=== PATIENT | male | born 1945 | race Caucasian/White ===

== ENCOUNTER → 2017-03-10 | Outpatient (CLI) | payer MEDICARE, SELFPAY | PROVIDERS: Family Provider Internal Medicine; Visit Provider Internal Medicine | DX: C67.9 Malignant neoplasm of bladder, unspecified (principal); I88.9 Nonspecific lymphadenitis, unspecified; Z12.5 Encounter for screening for malignant neoplasm of prostate | CPT/HCPCS: 36415; G0103 ==

== ENCOUNTER → 2018-04-27 09:41 | Outpatient (POV) | payer MEDICARE, SELFPAY | PROVIDERS: Visit Provider Dermatology | DX: Z00.00 Encounter for general adult medical examination without abnormal findings (principal) ==

== ENCOUNTER 2019-08-27 20:13 | Emergency (ER) | payer MEDICARE, OTHER, SELFPAY ==
--- NOTE | 2019-08-27 20:18 | HMH.EDGENADL ---
ED Disposition Clinical Impression: Pyelonephritis Disposition: Home, Self-Care Condition on Discharge: Good Instructions: DI for Kidney Infection Additional Instructions: Levaquin as prescribed. Follow-up with Dr. Chan in the office next week. Additional instructions for URINARY TRACT INFECTION: Return immediately if you have an uncontrollable fever greater than 102 degrees, severe back or abdominal pain, inability to urinate, or repetitive vomiting. Prescriptions: levoFLOXacin [Levaquin 500mg tab] 500 mg PO DAILY #10 tab Prescription Printed Referrals: Tremayne Bautista MD [Primary Care Provider] - - Critical Care Critical Care Time: No Attestation: On , the high probability of a clinically significant, sudden or life threatening deterioration of the following system(s) required my full and direct attention, intervention and personal management. The time I documented below is in addition to time spent performing reported procedures but includes the following listed in this critical care notation. Medical Decision Making - Medical Records Medical records reviewed: Yes: I reviewed the patient's medical records. - Festus Inquiry Pt receiving controlled substance: No Vital Signs: 08/27/19 20:15 08/27/19 20:24 08/27/19 20:45 Temperature 100.9 F H Temperature Source Oral Oral Pulse Rate Pulse Rate [Right] 88 81 Respiratory Rate 18 16 Blood Pressure Blood Pressure [Right Arm] 175/87 H 164/88 H Blood Pressure Mean [Right Arm] 116 113 Blood Pressure Source [Right Arm] Automatic Cuff Automatic Cuff Blood Pressure Position [Right Arm] Supine Supine 02 Sat by Pulse Oximetry 97 95 Oxygen Delivery Method Room Air Room Air 08/27/19 21:00 08/27/19 21:30 08/27/19 22:00 Temperature 99.4 F Temperature Source Oral Pulse Rate Pulse Rate [Right] 78 77 Respiratory Rate 16 16 Blood Pressure Blood Pressure [Right Arm] 158/88 H 152/83 H Blood Pressure Mean [Right Arm] 111 106 Blood Pressure Source [Right Arm] Automatic Cuff Automatic Cuff Blood Pressure Position [Right Arm] Supine Supine 02 Sat by Pulse Oximetry 97 96 Oxygen Delivery Method Room Air Room Air 08/27/19 22:15 Temperature 99.4 F Temperature Source Oral Pulse Rate 73 Pulse Rate [Right] Respiratory Rate 16 Blood Pressure 138/84 Blood Pressure [Right Arm] Blood Pressure Mean [Right Arm] Blood Pressure Source [Right Arm] Blood Pressure Position [Right Arm] 02 Sat by Pulse Oximetry Oxygen Delivery Method Room Air - Lab Data Lab results reviewed: Yes: I reviewed the patient's lab results. Lab Results 08/27/19 20:30: Urine Color Yellow, Urine Appearance Sl cloudy, Urine pH 7.0, Ur Specific [place] 1.010, Urine Protein Negative, Urine Glucose (UA) Negative, Urine Ketones Negative, Urine Blood 1+, Urine Nitrate Negative, Urine Bilirubin Negative, Urine Urobilinogen 0.2, Ur Leukocyte Esterase 2+ A, Urine RBC 5-10, Urine WBC 20-50 08/27/19 20:30: WBC 11.7 H, RBC 5.11, Hgb 15.6, Hct 45.1, MCV 88.1, MCH 30.5, MCHC 34.6, RDW 13.4, Plt Count 176, MPV 7.3 L, Neut % (Auto) 88.1 H, Lymph % (Auto) 8.1 L, Irwin % (Auto) 3.3, Eos % (Auto) 0.3, Baso % (Auto) 0.2, Neut # (Auto) 10.3 H, Lymph # (Auto) 0.9, Irwin # (Auto) 0.4, Eos # (Auto) 0.0, Baso # (Auto) 0.0, Total Counted 100, Neutrophils % (Manual) 91 H, Band Neutrophils % 1.0, Lymphocytes % (Manual) 7 L, Monocytes % (Manual) 1 L, Platelet Estimate Normal, RBC Morphology Normal 08/27/19 20:30: Sodium 134 L, Potassium 3.8, Chloride 97 L, Carbon Dioxide 28, Anion Gap 12.8, BUN 19, Creatinine 0.90, Estimated Creat Clear 81, Estimated GFR 83, Est GFR ( Amer) 100, Glucose 129 H, Calcium 9.3, Total Bilirubin 1.9 H, AST 41, ALT 25, Alkaline Phosphatase 97, Total Protein 8.3 H, Albumin 4.8, Globulin 3.5 H, Albumin/Globulin Ratio 1.4 08/27/19 20:30: Lactate 0.8 08/27/19 20:30: SARS-CoV-2 IgG Ab (Rapid) Positive A, SARS-CoV-2 IgM Ab (Rapid) Negative Result diagrams: 06
[2019-08-27 20:24] VITALS: BP 175/87; PULSE 88; RESP 18; TEMP 38.3; O2SAT 97; BMI 27.6
--- NOTE | 2019-08-27 20:31 | PC.NURSE ---
spoke with Dr. Spear. he stated he will be in a little after 9pm. house supp. informed
[2019-08-27 20:40] LABS: Microscopic, Urine URINE MICROSCOPIC (MICROSCOPIC)
[2019-08-27 20:45] VITALS: BP 164/88; PULSE 81; RESP 16; O2SAT 95
[2019-08-27 20:47] LABS: Basophils % 0.2 % (0.1-2.0); Eosinophils % 0.3 % (0.1-12.0); Hematocrit 45.1 % (42.0-52.0); Hemoglobin 15.6 g/dL (14.1-18.0); Lymphocytes # 0.9 K/mm3 (0.7-4.5); Lymphocytes % 8.1 % (10-50); Mean Corpuscular HGB Conc 34.6 g/dL (31.8-35.4); Mean Corpuscular Hemoglobin 30.5 pg (27.0-31.2); Mean Corpuscular Volume 88.1 fl (80-94); Mean Platelet Volume 7.3 fl (7.4-10.4); Monocytes # 0.4 K/mm3 (0.1-1.0); Monocytes % 3.3 % (1.7-9.3); Neutrophils # 10.3 K/mm3 (1.8-7.8); Neutrophils % 88.1 % (37.0-80.0); Platelet Count 176 K/mm3 (142-424); Red Blood Count 5.11 M/mm3 (4.60-6.20); Red Cell Distribution Width 13.4 % (11.5-17.5); White Blood Count 11.7 K/mm3 (4.8-10.8)
[2019-08-27 20:50] LABS: MANUAL DIFFERENTIAL MANUAL DIFFERENTIAL (MANUAL DIFF)
[2019-08-27 20:52] LABS: Appearance,Urine SL CLOUDY (Clear); Bilirubin,Urine Negative (Negative); Blood, Urine 1+ (Negative); Color,Urine YELLOW (Yellow); Glucose,Urine (UA) Negative (Negative); Ketones,Urine Negative (Negative); Leukocyte Esterase,Urine 2+ (Negative); Nitrate,Urine Negative (Negative); Protein,Urine Negative (Negative); Urobilinogen,Urine 0.2 EU/dl (0.2)
[2019-08-27 20:53] LABS: Alanine Aminotransferase 25 U/L (12-78); Albumin Level 4.8 g/dl (3.5-5.0); Albumin/Globulin Ratio 1.4 (1.1-1.8); Alkaline Phosphatase 97 U/L (38-126); Anion Gap 12.8 mEq/L (5-15); Aspartate Amino Transferase 41 U/L (17-59); Bilirubin,Total 1.9 mg/dl (0.2-1.3); Blood Urea Nitrogen 19 mg/dl (9-20); Calcium 9.3 mg/dl (8.4-10.2); Carbon Dioxide 28 mmol/L (22.0-30.0); Chloride 97 mmol/L (98-107); Creatinine Clearance Estimated 81 mL/min (50-200); Estimated Glomerular Filt Rate 83 ml/min (>60); GFR (African American) 100 ML/MIN (>60); Globulin 3.5 g/dL (1.3-3.2); Glucose 129 mg/dl (74-100); Potassium 3.8 mmoL/L (3.5-5.1); Sodium 134 mmol/L (136-145); Total Protein,Serum 8.3 g/dl (6.3-8.2)
[2019-08-27 20:57] LABS: WBC,Urine 20-50 #/hpf (0-3)
[2019-08-27 20:59] LABS: Lactic Acid 0.8 mmol/L (0.7-2.1); Lymphocytes % 7 % (10-50); Monocytes % 1 % (2-9); Neutrophils % 91 % (42-76); Platelet Estimate Normal; RBC Morphology Normal; Total Cells Counted 100
[2019-08-27 21:00] VITALS: BP 158/88; PULSE 78; RESP 16; O2SAT 97
--- NOTE | 2019-08-27 21:04 | PC.NURSE ---
Dr. Spear at bedside
[2019-08-27 21:06] LABS: Coronavirus 19 IgG Antibody Positive (Negative); Coronavirus 19 IgM Antibody Negative (Negative)
--- NOTE | 2019-08-27 21:22 | PC.NURSE ---
Dr Mares speaking with Dr Berger
[2019-08-27 21:30] VITALS: BP 152/83; PULSE 77; RESP 16; O2SAT 96
--- NOTE | 2019-08-27 21:45 | PC.NURSE ---
Dr Mares speaking with Dr Chan
[2019-08-27 22:00] VITALS: TEMP 37.4
[2019-08-27 22:15] VITALS: BP 138/84; PULSE 73; RESP 16; TEMP 37.4; O2SAT 97
[2019-08-29 09:59] LABS: Covid-19 Nasal PCR Sendout UK NOT DETECTED
== END 2019-08-27 22:17 | disposition home or self-care (01) ==
PROVIDERS: Emergency Provider Emergency Medicine; PCP Family Medicine
DX: N12 Tubulo-interstitial nephritis, not specified as acute or chronic (principal); E78.5 Hyperlipidemia, unspecified; Z87.442 Personal history of urinary calculi; Z87.891 Personal history of nicotine dependence; Z90.49 Acquired absence of other specified parts of digestive tract
CPT/HCPCS: 80053; 81001; 83605; 85007; 85025; 86328; 87040; 87086; 96365; 96367; 96375; 99284; J1956; J2405; U0003

== ENCOUNTER → 2019-10-04 08:44 | Outpatient (POV) | payer MEDICARE, OTHER, SELFPAY | PROVIDERS: PCP Family Medicine; Visit Provider Dermatology | DX: Z00.00 Encounter for general adult medical examination without abnormal findings (principal) ==

== ENCOUNTER → 2020-06-07 11:53 | Outpatient (CLI) | payer MEDICARE, OTHER, SELFPAY ==
--- NOTE | 2020-06-07 | ECG_ITS ---
APPROVED REPORT Exam: Resting ECG HR:72 bpm ECG Measurements Heart Rate 72 AXES RI 152 P 62 QRSd 92 QRS 63 QT 408 T 34 QTc 446 Conclusion Undetermined rhythm Otherwise normal ECG Electronically signed by : Anastacio Salinas, 06/07/2020 17:38:37
--- NOTE | 2020-06-07 12:02 | XR_ITS ---
PROCEDURE: XR CHEST 2V CLINICAL HISTORY: VILLANUEVA,SOB COMPARISON: No exams were available for comparison FINDINGS: The cardiomediastinal silhouette and pulmonary vascularity are within normal limits. Nodular opacities overlie the 6th rib on both sides anteriorly consistent with nipple shadows. The lungs are otherwise clear. No acute bony abnormalities. IMPRESSION: No acute findings. Dictated by: Khoa Herrera MD 06/07/2020 14:28 Khoa Herrera MD in [facility] 06/07/2020 14:28
[2020-06-07 14:41] LABS: Alanine Aminotransferase 21 U/L (12-78); Albumin Level 4.3 g/dl (3.5-5.0); Albumin/Globulin Ratio 1.6 (1.1-1.8); Alkaline Phosphatase 92 U/L (38-126); Anion Gap 11.7 mEq/L (5-15); Aspartate Amino Transferase 38 U/L (17-59); Bilirubin,Total 0.9 mg/dl (0.2-1.3); Blood Urea Nitrogen 16 mg/dl (9-20); Calcium 9.5 mg/dl (8.4-10.2); Carbon Dioxide 26 mmol/L (22.0-30.0); Chloride 104 mmol/L (98-107); Estimated Glomerular Filt Rate 82 ml/min (>60); GFR (African American) 100 ML/MIN (>60); Globulin 2.7 g/dL (1.3-3.2); Glucose 92 mg/dl (74-100); Potassium 4.7 mmoL/L (3.5-5.1); Sodium 137 mmol/L (136-145)
[2020-06-07 14:48] LABS: NT Pro Brain Natriuretic Pep. 171 pg/mL (0-125)
[2020-06-07 15:08] LABS: Thyroid Stimulating Hormone 0.98 uIU/mL (0.465-4.68)
== END ==
PROVIDERS: PCP Family Medicine; Visit Provider Family Medicine
DX: R07.9 Chest pain, unspecified (principal); R06.02 Shortness of breath; R06.00 Dyspnea, unspecified
CPT/HCPCS: 71046; 80053; 83880; 84443; 93005

== ENCOUNTER → 2021-04-10 11:01 | Outpatient (CLI) | payer MEDICARE, OTHER, SELFPAY | PROVIDERS: PCP Family Medicine; Visit Provider Urology | DX: C67.9 Malignant neoplasm of bladder, unspecified (principal); R31.9 Hematuria, unspecified; Z01.812 Encounter for preprocedural laboratory examination; U07.1 COVID-19 | CPT/HCPCS: C9803; U0003; U0005 ==

== ENCOUNTER 2021-05-10 10:59 | Day surgery (SDC) | payer MEDICARE, OTHER, SELFPAY ==
[2021-04-10 09:29] VITALS: BMI 26.5
[2021-05-07 11:43] VITALS: BMI 26.5
[2021-05-10 11:16] VITALS: BP 174/91; PULSE 66; RESP 18; TEMP 36.5; O2SAT 99
[2021-05-10 12:30] VITALS: BP 165/92; PULSE 63; RESP 18; O2SAT 98
--- NOTE | 2021-05-10 15:05 | HMH.OPNOTE ---
Date of procedure: 05/10/21 Pre-op Diagnosis:: Gross hematuria Post-op Diagnosis:: Gross hematuria, history of bladder cancer Procedure performed:: Cystoscopy Surgeon:: Garcia Chan MD Anesthesia: local Estimated blood loss (mL): 0 Clinical Note:: 75-year-old white male with history of bladder cancer with recent gross hematuria. Since I saw him in the office April 05 he has had no further hematuria but presents for cystoscopic evaluation. His last cystoscopy was August 2020 and was normal. Operative findings:: No evidence of mucosal abnormalities or other source of recent bleeding. His prostate did show by lobar hyperplasia. Operative note:: Patient taken to the operating suite after informed consent was obtained. On the stretcher is prepped draped in the standard surgical fashion and 2% lidocaine placed into the urethra and clamped. After 5 minutes the flexible cystoscope was placed into the urethral meatus and passed to the prostatic urethra which showed bilobar hyperplasia but no evidence of friability or bleeding. The bladder was entered and examined in a systematic fashion. No mucosal abnormalities, stones, diverticula or trabeculation noted. The ureteral orifices were obscured by the median lobe. The scope was retroflexed showing a large median lobe. The scope then removed. Patient tolerated procedure well. We discussed the findings today and he was reassured there is no obvious cause for his recent hematuria. He will continue the tamsulosin and finasteride. Condition: stable Disposition: same day Specimens:: None Complications:: None
== END 2021-05-10 12:30 | disposition home or self-care (01) ==
LOC: OUTP 11:01
PROVIDERS: PCP Family Medicine; Visit Provider Urology
DX: R31.9 Hematuria, unspecified (principal); Z85.51 Personal history of malignant neoplasm of bladder; E78.5 Hyperlipidemia, unspecified; Z88.1 Allergy status to other antibiotic agents; Z79.899 Other long term (current) drug therapy
CPT/HCPCS: 52000

== ENCOUNTER → 2021-07-09 10:10 | Outpatient (POV) | payer MEDICARE, OTHER, SELFPAY | PROVIDERS: Visit Provider Dermatology | DX: Z00.00 Encounter for general adult medical examination without abnormal findings (principal) ==

== ENCOUNTER → 2021-08-06 08:17 | Outpatient (POV) | payer MEDICARE, OTHER, SELFPAY | PROVIDERS: Visit Provider Dermatology | DX: Z00.00 Encounter for general adult medical examination without abnormal findings (principal) ==

== ENCOUNTER → 2022-06-24 08:45 | Outpatient (POV) | payer MEDICARE, OTHER, SELFPAY | PROVIDERS: Visit Provider Dermatology | DX: Z00.00 Encounter for general adult medical examination without abnormal findings (principal) ==

== ENCOUNTER → 2022-08-25 11:20 | Outpatient (CLI) | payer MEDICARE, OTHER, SELFPAY | PROVIDERS: PCP Family Medicine; Visit Provider Nurse Practitioner | DX: R00.2 Palpitations (principal) | CPT/HCPCS: 93270 ==

== ENCOUNTER → 2022-08-28 11:02 | Outpatient (CLI) | payer MEDICARE, OTHER, SELFPAY ==
--- NOTE | 2022-08-28 | CA_ITS ---
APPROVED REPORT Exam: Exercise Treadmill Technologist: Aleida Hernandez, Ht: 5 ft 10 in Wt: 189 lbs BSA: 2.04 m2 HR: 66 bpm BP: 161/96 mmHg Rhythm: NSR Indications: CP Medical History Medications: Amlodipine,,,,, Pravastatin,,,,, Vit D3,,,,, Finasteride,,,,, SaW [place],,,,, MVI,,,,, Stress Test Details Test: Jarrod HR Resting HR: 74 bpm Max Heart Rate (APMHR): 144 bpm Max HR Achieved: 141 bpm Target HR (85% APMHR): 122 bpm % of APMHR: 98 Recovery HR: 81 bpm HR response to stress: Normal HR response to stress BP Resting BP: 153.0/87 mmHg Max BP: 184/93 mmHg Recovery BP: 153.0/88.0 mmHg BP response to stress: Normal blood pressure response to stress. ECG Resting ECG: NSR, ST-T abns inferiorly Stress ECG: Exaggeration of baseline ST abnormality Arrhythmia: PACs, PVCs Recovery ECG: No change Recovery Arrhythmia: PVCs Clinical Exercise duration: 09:30 min Highest Stage Achieved: Exercise capacity: 10.1 METs Overall Exercise Capacity for Age: Good Stress ECG Conclusion The patient exercised 9:30 on Jarrod Protocol, achieving 10.1 METs. He had a normal HR and BP response to exercise. He demonstrated good exercise capacity compared to age and sex-matched peers. Max HR: 141 % of PM: 98% Max BP: 184/93 METs: 10.1 Test stopped due to: SOA, Fatigue Symptoms: No CP. Arrhythmias/Ectopy: Occastional PVCs were present during stress and in recovery. Brief period of frequent PACs during 1st minute of exercise. ST-T Changes: Exaggeration of baseline abns in the inferior leads. Conclusion: Non-diagnostic GXT due to baseline abns. Good exercise capacity. Myoview images reported separately. Test Summary REST . . . . . . . Sitting REST . . . . . . . Standing REST 04:01 0.0 0.0 74 . 153/ 87 . . Stage 1 01:00 10.0 1.7 83 . . . . Stage 1 02:00 10.0 1.7 87 . . . . Stage 1 03:00 10.0 1.7 87 . 158/ 70 . . Stage 2 01:00 12.0 2.5 98 . . . . Stage 2 02:00 12.0 2.5 103 . . . . Stage 2 03:00 12.0 2.5 106 . 170/ 70 . . Stage 3 01:00 14.0 3.4 122 . . . . Stage 3 02:00 14.0 3.4 126 . . . . Stage 3 03:00 14.0 3.4 127 . . . . Stage 4 00:30 16.0 4.2 138 . . . Stop exercise at 09:30 RECOVERY 01:00 0.0 0.0 125 . . . . RECOVERY 02:00 0.0 0.0 101 . . . . RECOVERY 03:00 0.0 0.0 92 . 184/ 93 . . RECOVERY 04:00 0.0 0.0 80 . 184/ 93 . . RECOVERY 05:00 0.0 0.0 82 . 153/ 88 . . RECOVERY 05:20 0.0 0.0 82 . 153/ 88 . . Electronically signed by : Alejandra Monet, 08/31/2022 14:15:05
--- NOTE | 2022-08-28 11:03 | NM_ITS ---
APPROVED REPORT Exam: Nuclear Stress Test Indication: chest pain..soa..palpitations..fatigue..high cholesterol..htpertension Patient Location: Outpatient Stress Tech: Aleida Buck [place] Tech:Paula Foote, ARRT RT(R)(N) Ht: 5 ft 10 in Wt: 180 lbs HR: 74 bpm BP: 153/87 mmHg BSA: 2.00 m2 TID: 1.15 BMI: 25.8 History: chest pain..soa..palpitations..fatigue..high cholesterol..htpertension Procedure: Patient exercised on Jarrod protocol 9:30 minutes and sec, resting heart rate 74 bpm, resting blood pressure 153/87 mmHg, with exercise maximum heart rate achived was 141 bpm which is 98 % of the maximum predicted heart rate and blood pressure was 184/93 mmHg. Patient denied any complaint of chest pain. Patient has exercise capacity, achieved 10.1 METs of workload on treadmill, the blood pressure response to exercise was . Cardiac Stress and Resting SPECT Images: Cardiac Stress and Resting SPECT images were obtained using technetium 99m Myoview 32.9 mCi stress and 10.98 mCi at rest. Resting and stress imaging in both supine and prone positions demonstrate a medium-sized, mild, fixed perfusion defect in the mid to distal inferior and inferoseptal LV wall. Gated imaging demonstrates mild reduction in global LV systolic function. There is moderate hypokinesis in the inferior and inferoseptal LV morley. LVEF is calculated at 48%. Conclusion: Resting and stress imaging in both supine and prone positions demonstrate a medium-sized, mild, fixed perfusion defect in the mid to distal inferior and inferoseptal LV wall. No evidence of reversible ischemia. Gated imaging demonstrates mild reduction in global LV systolic function. There is moderate hypokinesis in the inferior and inferoseptal LV morley. LVEF is calculated at 48%. Electronically signed by : Alejandra Monet, 08/31/2022 14:23:52
--- NOTE | 2022-08-28 12:47 | CA_ITS ---
FINAL REPORT TECHNIQUE: Color Doppler, duplex Doppler and torrez scale sonography of the bilateral neck arterial vasculature was performed. Velocities were measured in the carotid arteries. Stenosis evaluation based on the validated velocity criteria. CLINICAL HISTORY: BRUIT,HTN,HLD COMPARISON: None FINDINGS: The peak systolic velocity of the right common carotid artery is 64 cm/s. The peak systolic velocity of the right internal carotid artery is 82 cm/s and end diastolic velocity of 31 cm/s. The ICA/CCA ratio is 1.67. A mild amount of plaque is present. The right external carotid artery is patent. The right vertebral artery is patent with antegrade flow. The peak systolic velocity of the left common carotid artery is 88 cm/s. The peak systolic velocity of the left internal carotid artery is 72 cm/s and end diastolic velocity 28 cm/s. The ICA/CCA ratio is 1.6. A mild amount of plaque is present. The left external carotid artery is patent.The left vertebral artery is patent with antegrade flow. IMPRESSION: Less than 50% bilateral carotid stenoses. Bilateral patent vertebral arteries with antegrade flow. If indicated, CTA or MRA could further evaluate. Reviewed, Interpreted and Dictated by Bernardino Hodge III, MD Transcribed by Flores Del Toro Authenticated and [facility]
== END ==
PROVIDERS: PCP Family Medicine; Visit Provider Nurse Practitioner
DX: R07.9 Chest pain, unspecified (principal); R09.89 Other specified symptoms and signs involving the circulatory and respiratory systems
CPT/HCPCS: 78452; 93017; 93880; A9502

== ENCOUNTER → 2022-08-29 07:47 | Outpatient (CLI) | payer MEDICARE, OTHER, SELFPAY ==
--- NOTE | 2022-08-29 07:54 | CA_ITS ---
FINAL REPORT TECHNIQUE: Grayscale, color Doppler and duplex Doppler ultrasound of the kidneys, aorta and renal arteries was performed. Multiple velocities were measured. CLINICAL HISTORY: HTN,HX KIDNEY STONES COMPARISON: None FINDINGS: Aorta velocity: 69 cm/sec Right kidney: 10.7 cm. No evidence of hydronephrosis or mass. Right intrarenal RI: 0.60-0.71 Right renal artery velocity: 166 cm/sec. Right RAR (Renal artery-Aortic Ratio): 2.38 Left Kidney: 10.9 cm. No evidence of hydronephrosis or mass. Left intrarenal RI: 0.56-0.66 Left renal artery velocity: 129 cm/sec. Left RAR (Renal Artery-Aortic Ratio): 1.85 IMPRESSION: No evidence of significant renal artery stenosis. CT angiogram or postcontrast MR angiogram would be more sensitive for evaluation of possible renal artery stenosis. Reviewed, Interpreted and Dictated by Bernardino Hodge III, MD Transcribed by Flores Del Toro Authenticated and [facility]
--- NOTE | 2022-08-29 08:27 | US_ITS ---
FINAL REPORT CLINICAL HISTORY: I10 - Essential (primary) hypertension FINDINGS: The right kidney measures 10.2 cm in length. It is normal in echogenicity. There is no hydronephrosis. There is a 1.4 cm probable cyst in the upper pole of the right kidney. The left kidney measures 10.1 cm in length. It is normal in echogenicity. There is no hydronephrosis. The spleen is unremarkable. IMPRESSION: Probable right renal cyst. Reviewed, Interpreted and Dictated by Bernardino Hodge III, MD Transcribed by Krysten Hall Authenticated and [facility]
== END ==
PROVIDERS: PCP Family Medicine; Visit Provider Nurse Practitioner
DX: I10 Essential (primary) hypertension (principal)
CPT/HCPCS: 76770; 93976

== ENCOUNTER 2022-09-30 07:18 | Day surgery (SDC) | payer MEDICARE, OTHER, SELFPAY ==
[2022-09-30] VITALS (12 sets, daily range): BP systolic 107–165; BP diastolic 61–101; PULSE 46–55; RESP 16–18; O2SAT 94–100; BMI 27.1
--- NOTE | 2022-09-30 06:43 | IR_ITS ---
APPROVED REPORT Patient Location: Outpatient Sheetmetal Worker: MARY BETH Quiroz RT (R) PROCEDURES Left heart catheterization Left ventriculogram Selective coronary angiogram INDICATION Abnormal stress test, Persistent angina pectoris Informed consent was obtained prior to the procedure. COMPLICATIONS None Estimated Blood Loss: Less than 10 mls TECHNIQUE One percent lidocaine used to anesthetize the right anterior aspect of the wrist. The right radial artery was accessed via the Seldinger technique. A 6 Kiswahili sheath was placed in the right radial artery. 150 mg magnesium sulfate, 800 mcg of nitroglycerin, 1mg Lidocaine and 5000 U Heparin were given through the arterial sheath. The papa catheter was also used to perform left heart catheterization, left ventriculogram and selective coronary angiogram. At the end of the procedure the sheath was removed good hemostasis was achieved using Traclet band, patient was transferred to the postop holding area in stable condition. ANGIOGRAPHIC RESULTS The left main artery Normal The left anterior descending artery Normal The circumflex artery Normal The right coronary artery Dominant normal The [place] ventriculogram reveals Normal 65% The left ventricular end-diastolic pressure 10 mmHg IMPRESSION Normal coronary arteries Normal ejection fraction Normal left ventricular end-diastolic pressure PLAN 1. Evaluation of noncardiac symptoms Electronically signed by : Immanuel Castro MD 09/30/2022 09:02:21
[2022-09-30 08:22] LABS: Anion Gap 7.2 mEq/L (5-15); Blood Urea Nitrogen 16 mg/dl (9-20); Calcium 9.1 mg/dl (8.4-10.2); Carbon Dioxide 29 mmol/L (22.0-30.0); Chloride 107 mmol/L (98-107); Creatinine Clearance Estimated 75 mL/min (50-200); Estimated Glomerular Filt Rate 72 ml/min (>60); GFR (African American) 88 ML/MIN (>60); Glucose 90 mg/dl (74-100); Potassium 4.2 mmoL/L (3.5-5.1); Sodium 139 mmol/L (136-145)
[2022-09-30 08:29] LABS: Basophils % 0.4 % (0.1-2.0); Eosinophils # 0.2 K/mm3 (0.0-0.4); Hematocrit 42.6 % (42.0-52.0); Lymphocytes # 2.1 K/mm3 (0.7-4.5); Lymphocytes % 34.3 % (10-50); Mean Corpuscular HGB Conc 32.9 g/dL (31.8-35.4); Mean Corpuscular Hemoglobin 28.8 pg (27.0-31.2); Mean Corpuscular Volume 87.6 fl (80-94); Mean Platelet Volume 7.7 fl (7.4-10.4); Monocytes # 0.4 K/mm3 (0.1-1.0); Monocytes % 6.7 % (1.7-9.3); Neutrophils # 3.4 K/mm3 (1.8-7.8); Neutrophils % 55.6 % (37.0-80.0); Platelet Count 203 K/mm3 (142-424); Red Blood Count 4.86 M/mm3 (4.60-6.20); Red Cell Distribution Width 13.7 % (11.5-17.5); White Blood Count 6.1 K/mm3 (4.8-10.8)
[2022-09-30 08:30] LABS: Prothrombin Time 10.8 seconds (10.1-12.5)
--- NOTE | 2022-09-30 11:23 | SUR.PHASEII ---
1100 attempted to take 2ml of air out. pt began bleeding at radial site, replae 2ml of air back into radial band. bleeding stopped. 1115 removed 2ml of air from radial band, no new bleeding noted.
== END 2022-09-30 12:40 | disposition home or self-care (01) ==
PROVIDERS: PCP Family Medicine; Visit Provider Internal Medicine
DX: I10 Essential (primary) hypertension (principal); I25.118 Atherosclerotic heart disease of native coronary artery with other forms of angina pectoris; I42.9 Cardiomyopathy, unspecified; R00.2 Palpitations; R06.00 Dyspnea, unspecified; R09.89 Other specified symptoms and signs involving the circulatory and respiratory systems; R42 Dizziness and giddiness; R94.39 Abnormal result of other cardiovascular function study; Z79.899 Other long term (current) drug therapy; Z79.01 Long term (current) use of anticoagulants; I48.0 Paroxysmal atrial fibrillation
CPT/HCPCS: 80048; 85025; 85610; 93306; 93458; 99152; C1725; C1760; C1769; J1644; Q9967

== ENCOUNTER 2023-04-15 09:05 | Outpatient (CLI) | payer MEDICARE, OTHER, SELFPAY ==
[2023-04-15 09:29] LABS: Basophils # 0.1 K/mm3 (0-0.2); Basophils % 0.8 % (0.1-2.0); Eosinophils # 0.2 K/mm3 (0.0-0.4); Eosinophils % 1.8 % (0.1-12.0); Hematocrit 41.4 % (42.0-52.0); Hemoglobin 14.6 g/dL (14.1-18.0); Lymphocytes # 2.1 K/mm3 (0.7-4.5); Lymphocytes % 23.5 % (10-50); Mean Corpuscular HGB Conc 35.4 g/dL (31.8-35.4); Mean Corpuscular Volume 90.4 fl (80-94); Monocytes # 0.5 K/mm3 (0.1-1.0); Monocytes % 5.9 % (1.7-9.3); Platelet Count 224 K/mm3 (142-424); Red Blood Count 4.58 M/mm3 (4.60-6.20); Red Cell Distribution Width 13.6 % (11.5-17.5); White Blood Count 8.8 K/mm3 (4.8-10.8)
[2023-04-15 09:51] LABS: Chloride 101 mmol/L (98-107); Sodium 135 mmol/L (136-145)
[2023-04-15 09:52] LABS: Potassium 4.7 mmoL/L (3.5-5.1)
[2023-04-15 09:54] LABS: Alanine Aminotransferase 25 U/L (12-78); Alkaline Phosphatase 104 U/L (38-126); Anion Gap 11.7 mEq/L (5-15); Aspartate Amino Transferase 42 U/L (17-59); Blood Urea Nitrogen 15 mg/dl (9-20); Carbon Dioxide 27 mmol/L (22.0-30.0); Cholesterol 191 mg/dl (140-200); Estimated Glomerular Filt Rate 72 ml/min (>60); GFR (African American) 88 ML/MIN (>60); Glucose 96 mg/dl (74-100); Total Protein,Serum 6.7 g/dl (6.3-8.2); Triglycerides 137 mg/dl (30-150); VLDL Cholesterol 27 mg/dL (0-40)
[2023-04-15 09:55] LABS: Chol/HDL Ratio 3.4 (1-3.5); HDL Cholesterol 57 mg/dl (40-60)
[2023-04-15 10:06] LABS: Direct LDL Cholesterol 88.39 mg/dL (100-129)
[2023-04-15 10:28] LABS: Thyroid Stimulating Hormone 1.95 uIU/mL (0.465-4.68)
== END 2023-04-15 23:59 ==
LOC: LAB 09:06
PROVIDERS: PCP Family Medicine; Visit Provider Nurse Practitioner
DX: E78.5 Hyperlipidemia, unspecified (principal); I10 Essential (primary) hypertension; I48.0 Paroxysmal atrial fibrillation; I42.8 Other cardiomyopathies
CPT/HCPCS: 36415; 80048; 80061; 80076; 83735; 84439; 84443; 85025

== ENCOUNTER 2023-05-01 15:32 | Outpatient (CLI) | payer MEDICARE, OTHER, SELFPAY ==
--- NOTE | 2023-05-01 15:39 | XR_ITS ---
FINAL REPORT CLINICAL HISTORY: ACUTE LEFT ANKLE PAIN COMPARISON: None FINDINGS: LEFT ANKLE: Three views of the left ankle were obtained. There is no acute fracture or dislocation. The joint spaces and mortise are intact. Soft tissue swelling is present. A plantar calcaneal spur is present as well. IMPRESSION: No acute bony abnormality. Reviewed, Interpreted and Dictated by Bernardino Hodge III, MD Transcribed by Liz Caceres Authenticated and [facility]
[2023-05-01 17:13] LABS: Uric Acid 2.8 mg/dl (3.5-8.5)
== END 2023-05-01 23:59 ==
PROVIDERS: PCP Family Medicine; Visit Provider Family Medicine
DX: M25.572 Pain in left ankle and joints of left foot (principal); E79.0 Hyperuricemia without signs of inflammatory arthritis and tophaceous disease
CPT/HCPCS: 36415; 73610; 84550

== ENCOUNTER 2023-06-24 15:18 | Emergency (ER) | payer MEDICARE, OTHER, SELFPAY ==
[2023-06-24 15:27] VITALS: BP 158/87; PULSE 95; RESP 18; TEMP 36.9; O2SAT 94; BMI 27.2
--- NOTE | 2023-06-24 15:36 | PC.NURSE ---
vascular called about venous ultrasound
--- NOTE | 2023-06-24 15:37 | XR_ITS ---
FINAL REPORT CLINICAL HISTORY: atraumatic swelling FINDINGS: Left foot Three views were obtained. There is no acute fracture or dislocation. There is mild hallux valgus deformity. There are mild degenerative changes of the 1st metatarsophalangeal joint. Small calcaneal spur is identified. No soft tissue abnormality is identified. IMPRESSION: Degenerative and chronic appearing findings. Reviewed, Interpreted and Dictated by Bernardino Hodge III, MD Transcribed by Krysten Hall Authenticated and . [facility]
--- NOTE | 2023-06-24 15:49 | ED_ITS ---
Discharge Plan Disposition Patient Disposition: Home, Self-Care Chief Complaint: Extremity Problem,Nontraumatic Prescriptions Prescriptions: No Action cholecalciferol (vitamin D3) 1,000 unit capsule 1,000 unit PO ONCE multivitamin tablet 1 tab PO ONCE pravastatin 10 mg tablet 10 mg PO ONCE amlodipine 2.5 mg tablet 5 mg PO DAILY losartan 25 mg tablet 25 mg PO DAILY Qty: 30 2RF Eliquis 5 mg tablet 5 mg PO BID Qty: 60 2RF tamsulosin 0.4 mg capsule 0.4 mg PO DAILY Qty: 90 3RF finasteride 5 mg tablet 5 mg PO DAILY Qty: 90 3RF bisoprolol fumarate 5 mg tablet 5 mg PO DAILY Qty: 90 1RF Referrals Follow up/Referrals: Tremayne Bautista MD [Primary Care Provider] - See instructions Brittany Vilchis DPM [Staff Physician] - See instructions Activity Restrictions/Add. Instructions Additional Instructions/Restrictions: At this time it was felt you are safe to be discharged home. If new or worsening symptoms please do not hesitate to return the emergency department. Please call and schedule an appointment with Dr. Vilchis as soon as you are able. Clinical Impressions Clinical Impression: Foot swelling Discharge ED Provider: Lionel Mcnulty General Adult HPI General Chief complaint: Extremity Problem,Nontraumatic Stated complaint: [facility] poss blood clot LLE Time Seen by Provider: 06/24/23 15:29 Mode of Arrival: Ambulatory Source of Information: Patient Limitations: No Limitations Description of Symptoms (Recalled from ER Triage Doc. by RN): swelling to lle. pulses palpable History of Present Illness HPI narrative: Patient is a 77-year-old male [place] patient who presents emergency department for evaluation of atraumatic foot swelling. History is obtained by patient at bedside. Patient has had atraumatic swelling of his left lower extremity distal to his cheng with slight discoloration of his foot for the last 3 months. He has received x-rays by PCP which were reportedly unremarkable. Due to persistent symptoms he was at physical therapy today and they referred him here for continued evaluation. Denies pain however it is uncomfortable walking on his left foot 2 out of 10. Related Data Home Medications Medication Instructions Recorded Confirmed cholecalciferol (vitamin D3) 25 1,000 unit PO ONCE Supplement 06/04/17 04/15/23 mcg (1,000 unit) capsule multivitamin 1 tab PO ONCE Supplement 06/04/17 04/15/23 pravastatin 10 mg tablet 10 mg PO ONCE Cholesterol 06/04/17 04/15/23 amlodipine 2.5 mg tablet 5 mg PO DAILY 08/25/22 04/15/23 Previous Rx's Medication Instructions Recorded tamsulosin 0.4 mg capsule 0.4 mg PO DAILY #90 caps 08/29/21 finasteride 5 mg tablet 5 mg PO DAILY #90 tabs 09/18/21 losartan 25 mg tablet 25 mg PO DAILY #30 tabs 08/25/22 bisoprolol fumarate 5 mg tablet 5 mg PO DAILY #90 tabs 08/29/22 apixaban 5 mg tablet (Eliquis) 5 mg PO BID #60 tabs 10/13/22 Allergies Allergy/AdvReac Type Severity Reaction Status Date / Time cefazolin [From [facility]] Allergy Unknown rash Verified 04/15/23 08:38 [facility] Disclaimer: The information contained in this section may have been updated after the patient was seen, as this information can be updated by other users. Medical History Abnormal cardiovascular stress test Atypical angina Cardiomyopathy HTN (hypertension) Hyperlipidemia Paroxysmal atrial fibrillation Pyelonephritis Tachycardia Social History Smoking Status: Never smoker alcohol intake: never substance use type: denies use current occupational status: retired Travel in the last 8 weeks: None household members: spouse and family housing: house caffeine: Yes ROS Obtained: Yes Systems reviewed as appropriate & no additional complaints except as documented Physical Exam General General appearance: alert and in no apparent distress Head Head exam: atraumatic and normocephalic Eye Eye exam: Present PERRL and EOMI ENT ENT exam: Present mucous membranes moist Neck Neck exam: Present normal inspection Chest Chest inspection: Present normal inspection and symmetric chest wall rise Respiratory Respiratory exam: Present normal lung sounds bilaterally; Absent respiratory distress Cardiovascular Cardiovascular exam: Present regular rate and normal rhythm Abdominal Exam Abdominal exam: Present soft; Absent tenderness Extremities Exam Extremities exam: Present other (Slight nonpitting edema of the left lower extremity distal to the mid cheng, mild erythema of the foot. Bounding dorsal pedal pulse on the left. Active and passive range of motion of the knee and ankle preserved. Distal capillary refill preserved.) Neurological Exam Neurological exam: Present alert Psychiatric Psychiatric exam: Present normal affect Skin Skin exam: Present warm and dry Medical Decision Making Festus Inquiry Pt receiving controlled substance: No Vital Signs: 06/24/23 15:27 06/24/23 17:52 06/24/23 17:55 Temperature 98.4 F 98.4 F Temperature Source Oral Oral Pulse Rate 73 53 L Pulse Rate [Left Radial] 95 H Respiratory Rate 18 19 Blood Pressure 139/77 139/77 Blood Pressure [Left Arm] 158/87 H Blood Pressure Mean [Left Arm] 110 02 Sat by Pulse Oximetry 94 L 98 Oxygen Delivery Method Room Air Room Air Room Air 06/24/23 18:00 Temperature Temperature Source Pulse Rate 54 L Pulse Rate [Left Radial] Respiratory Rate Blood Pressure 135/78 Blood Pressure [Left Arm] Blood Pressure Mean [Left Arm] 02 Sat by Pulse Oximetry 96 Oxygen Delivery Method Room Air Lab Data Lab Results 06/24/23 17:37: WBC 6.9, RBC 4.67, Hgb 13.8 L, Hct 42.7, MCV 91.5, MCH 29.6, MCHC 32.3, RDW 13.4, Plt Count 210, MPV 7.6, Neut % (Auto) 64.3, Lymph % (Auto) 26.6, Hubbard % (Auto) 6.4, Eos % (Auto) 2.0, Baso % (Auto) 0.8, Neut # (Auto) 4.4, Lymph # (Auto) 1.8, Hubbard # (Auto) 0.4, Eos # (Auto) 0.1, Baso # (Auto) 0.1, S odium 135 L, Potassium 4.2, Chloride 101, Carbon Dioxide 30, Anion Gap 8.2, BUN 20, Creatinine 0.90, Estimated Creat Clear 75, Estimated GFR 82, Est GFR ( Amer) 99, Glucose 95, Calcium 9.6, Total Bilirubin 0.9, AST 36, ALT 24, Alkaline Phosphatase 92, Total Protein 6.9, Albumin 4.3, Globulin 2.6, Albumin/Globulin Ratio 1.7 06/24/23 17:37 06/24/23 17:37 Orders (Tests/Meds): ORDERS Category Date Time Status Foot XR left minimum 3 views [XR foot LT min 3V] Stat Exams 06/24/23 15:37 Completed BNP [NT Pro Brain Natriuretic Pep.] Stat Lab 06/24/23 17:37 Results CBC w/Auto Diff [Complete Blood Count Auto Diff] Stat Lab 06/24/23 17:37 Completed CMP [Comprehensive Metabolic Panel] Stat Lab 06/24/23 17:37 Results CA venous doppler LE LT Stat Y 06/24/23 15:37 Completed Medical Decision Narrative: In summary patient is a 77-year-old female with past medical history described above who presents emergency department for evaluation of atraumatic foot swelling and slight discoloration. Patient is hemodynamically stable nontoxic- appearing upon arrival, afebrile. Differential diagnosis includes chronic arthritis, DVT, heart failure, kidney failure, among others. Workup will be conducted with hematologic labs, three-view plain film of the affected foot. Workup reviewed by me, hematologic labs are nonactionable, no JEREMY or critical electrolyte abnormality. Plain film remarkable for degenerative and chronic appearing findings. Venous Doppler study preliminarily negative. Given this patient is appropriate for discharge at this time we will follow-up on an outpatient basis with Dr. Vilchis. Critical Care Critical Care Time Critical Care Time: No
--- NOTE | 2023-06-24 16:00 | PC.NURSE ---
per [place] product support technician, ultrasound was negative for blood clot, aware
--- NOTE | 2023-06-24 16:09 | PC.NURSE ---
spoke with Shira who states she is sending ultrasound for final read, aware
--- NOTE | 2023-06-24 16:26 | PC.NURSE ---
lab called for lab draw
--- NOTE | 2023-06-24 17:23 | PC.NURSE ---
lab at bedside. Urine collected in case it is needed.
--- NOTE | 2023-06-24 17:39 | PC.NURSE ---
blood sent to lab, pt updated on poc.
[2023-06-24 17:52] VITALS: BP 139/77; PULSE 73; RESP 19; TEMP 36.9; O2SAT 97
[2023-06-24 17:55] VITALS: BP 139/77; PULSE 53; O2SAT 98
[2023-06-24 17:56] LABS: Basophils # 0.1 K/mm3 (0-0.2); Basophils % 0.8 % (0.1-2.0); Eosinophils # 0.1 K/mm3 (0.0-0.4); Hematocrit 42.7 % (42.0-52.0); Hemoglobin 13.8 g/dL (14.1-18.0); Lymphocytes # 1.8 K/mm3 (0.7-4.5); Lymphocytes % 26.6 % (10-50); Mean Corpuscular HGB Conc 32.3 g/dL (31.8-35.4); Mean Corpuscular Hemoglobin 29.6 pg (27.0-31.2); Mean Corpuscular Volume 91.5 fl (80-94); Mean Platelet Volume 7.6 fl (7.4-10.4); Monocytes # 0.4 K/mm3 (0.1-1.0); Monocytes % 6.4 % (1.7-9.3); Neutrophils # 4.4 K/mm3 (1.8-7.8); Neutrophils % 64.3 % (37.0-80.0); Platelet Count 210 K/mm3 (142-424); Red Blood Count 4.67 M/mm3 (4.60-6.20); Red Cell Distribution Width 13.4 % (11.5-17.5); White Blood Count 6.9 K/mm3 (4.8-10.8)
[2023-06-24 18:00] VITALS: BP 135/78; PULSE 54; O2SAT 96
[2023-06-24 18:01] LABS: Alanine Aminotransferase 24 U/L (12-78); Albumin Level 4.3 g/dl (3.5-5.0); Albumin/Globulin Ratio 1.7 (1.1-1.8); Alkaline Phosphatase 92 U/L (38-126); Anion Gap 8.2 mEq/L (5-15); Aspartate Amino Transferase 36 U/L (17-59); Bilirubin,Total 0.9 mg/dl (0.2-1.3); Blood Urea Nitrogen 20 mg/dl (9-20); Calcium 9.6 mg/dl (8.4-10.2); Carbon Dioxide 30 mmol/L (22.0-30.0); Chloride 101 mmol/L (98-107); Creatinine Clearance Estimated 75 mL/min (50-200); Estimated Glomerular Filt Rate 82 ml/min (>60); GFR (African American) 99 ML/MIN (>60); Globulin 2.6 g/dL (1.3-3.2); Glucose 95 mg/dl (74-100); Potassium 4.2 mmoL/L (3.5-5.1); Sodium 135 mmol/L (136-145); Total Protein,Serum 6.9 g/dl (6.3-8.2)
--- NOTE | 2023-06-24 18:04 | PC.NURSE ---
Dr. Mcnulty and I at bedside for exam
[2023-06-24 18:10] LABS: NT Pro Brain Natriuretic Pep. 179 pg/mL (0-450)
== END 2023-06-24 18:51 | disposition home or self-care (01) ==
PROVIDERS: Emergency Provider Emergency Medicine; PCP Family Medicine
DX: R22.42 Localized swelling, mass and lump, left lower limb (principal); I10 Essential (primary) hypertension; I20.9 Angina pectoris, unspecified; E78.5 Hyperlipidemia, unspecified; I42.9 Cardiomyopathy, unspecified
CPT/HCPCS: 73630; 80053; 83880; 85025; 93971; 99284

== ENCOUNTER 2023-12-22 09:00 | Outpatient (POV) | payer MEDICARE, OTHER, SELFPAY | END 2023-12-22 23:59 | disposition home or self-care (01) | LOC: SC 12-23 06:24 | PROVIDERS: Visit Provider Dermatology | DX: Z00.00 Encounter for general adult medical examination without abnormal findings (principal) ==

== ENCOUNTER 2024-03-12 09:06 | Emergency (ER) | payer MEDICARE, OTHER, SELFPAY ==
--- NOTE | 2024-03-12 10:03 | EXP.UTC ---
Discharge Plan Disposition Patient Disposition: Home, Self-Care Condition: Good Prescriptions Prescriptions: New benzonatate 100 mg capsule 100 mg PO TIDP PRN (Reason: Cough) Qty: 30 0RF methylprednisolone 4 mg Tablets,Dose Pack 4 mg PO DIRECTED 6 Days Qty: 21 0RF Rx Instructions: Take 1 pack as directed for 6 days amoxicillin 875 mg tablet 875 mg PO Q12H Qty: 20 0RF No Action multivitamin tablet 1 tab PO ONCE pravastatin 10 mg tablet 10 mg PO ONCE amlodipine 2.5 mg tablet 5 mg PO DAILY losartan 25 mg tablet 25 mg PO DAILY Qty: 30 2RF Eliquis 5 mg tablet 5 mg PO BID Qty: 60 2RF tamsulosin 0.4 mg capsule 0.4 mg PO DAILY Qty: 90 3RF finasteride 5 mg tablet 5 mg PO DAILY Qty: 90 3RF bisoprolol fumarate 5 mg tablet 5 mg PO DAILY Qty: 90 1RF Referrals Follow up/Referrals: Tremayne Bautista MD [Primary Care Provider] - See instructions Activity Restrictions/Add. Instructions Additional Instructions/Restrictions: Drink plenty of fluids. Take tylenol or ibuprofen for pain or fever. Take the medications as directed. Follow up with your regular doctor. GO TO THE ER FOR ANY WORSENING SYMPTOMS Clinical Impressions Clinical Impression: Bronchitis, Sinusitis Instructions Patient Instructions: Sinusitis, DI for Sinusitis Print Language Print Language: [place] Island[place] Discharge ED Provider: Shant Vincent [facility] [place] H[place] General Stated complaint: chest congestion, sore throat, cough, ear pressure Time Seen by Provider: 03/12/24 10:03 Related Data Home Medications ?Medication ?Instructions ?Recorded ?Confirmed multivitamin 1 tab PO ONCE Supplement 06/04/17 10/14/23 pravastatin 10 mg tablet 10 mg PO ONCE Cholesterol 06/04/17 03/12/24 amlodipine 2.5 mg tablet 5 mg PO DAILY 08/25/22 03/12/24 Previous Rx's ?Medication ?Instructions ?Recorded tamsulosin 0.4 mg capsule 0.4 mg PO DAILY #90 caps 08/29/21 finasteride 5 mg tablet 5 mg PO DAILY #90 tabs 09/18/21 losartan 25 mg tablet 25 mg PO DAILY #30 tabs 08/25/22 bisoprolol fumarate 5 mg tablet 5 mg PO DAILY #90 tabs 08/29/22 apixaban 5 mg tablet (Eliquis) 5 mg PO BID #60 tabs 10/13/22 amoxicillin 875 mg tablet 875 mg PO Q12H #20 tabs 03/12/24 benzonatate 100 mg capsule 100 mg PO TIDP PRN Cough #30 caps 03/12/24 methylprednisolone 4 mg tablets in 4 mg PO DIRECTED 6 days #21 tabs 03/12/24 a dose pack Allergies Allergy/AdvReac Type Severity Reaction Status Date / Time cefazolin (From [facility]) Allergy Unknown rash Verified 10/14/23 09:01 [facility] Disclaimer: The information contained in this section may have been updated after the patient was seen, as this information can be updated by other users. Medical History Hyperlipidemia Paroxysmal atrial fibrillation Atypical angina Abnormal cardiovascular stress test Cardiomyopathy Tachycardia HTN (hypertension) Pyelonephritis Social History Smoking Status: Never smoker alcohol intake: never substance use type: denies use current occupational status: retired Travel in the last 8 weeks: None household members: spouse and family housing: house caffeine: Yes Have you lived/traveled outside [place] in past 30 days?: No Contact w/someone who lives/traveled outside [place] past 30 days?: No Exposure to someone with infectious disease in past 14 days?: No Do you have a fever (greater than 100.4 F or 38 C)?: No Have you tested positive for COVID-19: No Exposed to someone with COVID-19 in past 14 days?: No Do you have a sore throat?: Yes Do you have a cough?: Yes Do you have any weakness?: No Do you have any diarrhea?: No Are you experiencing any unusual bleeding?: No Do you have any muscle aches/pain?: No Do you have any abdominal pain?: No Are you experiencing loss of taste or smell?: No ROS Obtained: Yes All systems reviewed & no additional complaints except as documented Constitutional Constitutional: Reports poor appetite Eyes Eyes: Reports system reviewed and no additional complaints, except as documented ENT Ears, Nose, Mouth, and Throat: Reports as per HPI Cardiovascular Cardiovascular: Reports system reviewed and no additional complaints, except as documented and Denies chest pain Respiratory Respiratory: Denies shortness of breath, Reports chest congestion, Reports cough, Denies stridor and Denies wheezing Gastrointestinal Gastrointestingal: Reports system reviewed and no additional complaints, except as documented; Denies abdominal pain, diarrhea or vomiting Musculoskeletal Musculoskeletal: Reports system reviewed and no additional complaints, except as documented and Denies arthralgias Integumentary/Breasts Skin/Breast: Reports system reviewed and no additional complaints, except as documented and Denies rash Neurologic Neurologic: Denies paresthesias Allergic/Immunologic Allergic/Immunologic: Denies wheezing Physical Exam General General appearance: alert and in no apparent distress Head Head exam: atraumatic, normocephalic and normal inspection Eye Eye exam: Present normal appearance, PERRL and EOMI ENT ENT exam: Present normal exam, normal oropharynx, mucous membranes moist, TM's normal bilaterally and normal external ear exam Neck Neck exam: Present normal inspection, full ROM and trachea midline; Absent meningismus or lymphadenopathy Chest Chest inspection: Present normal inspection and symmetric chest wall rise; Absent tenderness Respiratory Respiratory exam: Present normal lung sounds bilaterally; Absent respiratory distress Cardiovascular Cardiovascular exam: Present regular rate and normal rhythm; Absent JVD Abdominal Exam Abdominal exam: Present soft and normal bowel sounds; Absent distention, tenderness or guarding Extremities Exam Extremities exam: Present normal inspection, full ROM and normal capillary refill; Absent calf tenderness Back Exam Back exam: Present normal inspection; Absent tenderness Neurological Exam Neurological exam: Present alert and oriented X3 Psychiatric Psychiatric exam: Present normal affect and normal mood Skin Skin exam: Present warm, dry, intact and normal color Lymphatic Lymphatic Findings: no adenopathy Medical Decision Making Medical Records Medical records reviewed: No I reviewed the patient's medical records. Screening: Per USPSTF and CDC recommendations, given the prevalence of disease in our region, it is our hospital?s policy to screen for HIV and viral Hepatitis for all patients aged 18 and over and those with ongoing risk factors. Festus Inquiry Pt receiving controlled substance: No Lab Data Lab results reviewed: Yes I reviewed the patient's lab results.
[2024-03-12 10:12] VITALS: BP 134/80; PULSE 63; RESP 18; TEMP 36.8; O2SAT 94; BMI 27.9
[2024-03-12 11:06] VITALS: BP 134/80; PULSE 63; RESP 18; TEMP 36.8
== END 2024-03-12 11:08 | disposition home or self-care (01) ==
PROVIDERS: Emergency Provider Nurse Practitioner Family; PCP Family Medicine
DX: J20.9 Acute bronchitis, unspecified (principal); J01.90 Acute sinusitis, unspecified; R09.89 Other specified symptoms and signs involving the circulatory and respiratory systems; R07.0 Pain in throat; R05.9 Cough, unspecified; R63.8 Other symptoms and signs concerning food and fluid intake
CPT/HCPCS: 99212; G0381